=== PATIENT | female | born 1955 | race Caucasian/White ===

== ENCOUNTER 2019-04-22 12:35 | Emergency (ER) | payer MEDICARE, SELFPAY ==
[2019-04-22 12:36] VITALS: BP 176/103; PULSE 74; RESP 16; TEMP 36.8; O2SAT 97; BMI 25.4
--- NOTE | 2019-04-22 13:17 | ED.VISSUMM ---
- ER Visit Summary Date of Service: 04/22/19 Chief Complaint: Back pain History of Present Illness: The patient is a 63 F who presents with back pain that has been getting worse over the past month. Patient had back surgery in February. Patient states her pain is now above worse she had back surgery. Patient states her back surgery was to move her nerve so it would not be pinched. Patient denies any trauma or injury. Patient states she recently moved but hired movers. Patient thinks she may have twisted while cleaning. Patient states the pain does radiate down her left leg. Patient denies any bowel or bladder changes. Patient denies any saddle anesthesia. Patient denies any paresthesias or weakness. Physical Examination: All signs are stable. Patient is afebrile. Patient is in no acute distress. Musculoskeletal exam reveals tenderness over the lower thoracic spine and paraspinal muscles. There is no bony crepitance or step-off. There is no edema or ecchymosis. The incision over the lower lumbar area on the left is healing well without any erythema or tenderness. There is no discharge or drainage. There is no lumbar spine tenderness. Strength is 5/5 bilaterally in the lower extremities. Deep tendon reflexes are 2/4 bilaterally in the lower extremities. There are no sensory deficits noted. Emergency Department Course and Treatment: Patient was given a dose of [place] here. Patient was instructed to use ice to the area. Patient was instructed to follow-up with her primary care physician in 5 to 7 days. Patient and family understood and were agreeable with the plan. All questions were answered. Disposition: Discharge home Impression: Acute thoracic strain This note was generated with [employer] dictation software. It may contain incorrect words, spelling, and punctuation that were not noted in review of the chart prior to signing ED Disposition - Plan for ED Patient: Disposition: Home or Assisted Living Diagnosis: Acute thoracic myofascial strain Instructions: Back Sprain/Strain Prescriptions: Naproxen [Naprosyn] 500 mg PO BID PRN #20 tab Prescription Printed Referrals: Rosalio Darling MD [Primary Care Provider] - 5-7 Days
[2019-04-22] MEDS: HYDROcodone Bitartrate/Apap 5/325 Tablet PO (13:21)
--- NOTE | 2019-04-22 14:46 | ED.RN ---
Daughter calls in to verify stomach medicine which is protonix. Stated it interacts with naprosyn rx given for home. Dr Batista suggested switching to ibuprofen. Pt agreeable to this.
== END 2019-04-22 13:40 | disposition home or self-care (01) ==
PROVIDERS: Emergency Provider Emergency Medicine; Family Provider Family Medicine; PCP Family Medicine
DX: S29.012A Strain of muscle and tendon of back wall of thorax, initial encounter (principal); M79.605 Pain in left leg; X50.1XXA Overexertion from prolonged static or awkward postures, initial encounter; Y93.9 Activity, unspecified; Y92.9 Unspecified place or not applicable; Y99.9 Unspecified external cause status; E03.9 Hypothyroidism, unspecified; M79.7 Fibromyalgia; Z79.899 Other long term (current) drug therapy
CPT/HCPCS: 99284